=== PATIENT | male | born 1935 | race Caucasian/White ===

== ENCOUNTER 2024-09-06 14:07 | Emergency (ER) | payer OTHER, MEDICARE ==
[~2024-09-06] VITALS: Ht 177.8 cm; Wt 100.0 kg
[~2024-09-06 14:07] MED LIST: CARB1DRO OP; CARV25TA2 PO; CEPH-585 PO; CHOL100046 PO; FLEC100T PO; FLO0.4C PO; FLUT15.845 INH; HYDR12.55 PO; LOSA1TAB41 PO; RIVA20TA PO; SERT-432 PO; SIMV-42 PO; VIT1CAPS46 PO
[2024-09-06 15:59] LABS: BASOPHILS # (AUTO) 0.1 X10'3 (0-0.2); EOSINOPHILS # (AUTO) 0.3 X10'3 (0-0.9); HEMATOCRIT 41.1 % (42.0-52.0); HEMOGLOBIN 13.8 g/dl (14.0-17.9); MEAN CORPUSCULAR HGB CONC 33.6 g/dL (33.0-36.5); MONOCYTES # (AUTO) 0.5 X10'3 (0-0.9); NEUTROPHILS # (AUTO) 3.3 X10'3 (1.8-7.7); RED CELL DISTRIBUTION WIDTH 14.7 % (11.5-14.5); WHITE BLOOD COUNT 5.6 X10'3 (4.5-11.0)
[2024-09-06 16:02] LABS: BASOPHILS % (AUTO) 1.5 % (0-1); EOSINOPHILS % (AUTO) 4.8 % (0-6); LYMPHOCYTES # (AUTO) 1.5 X10'3 (1.1-4.8); LYMPHOCYTES % (AUTO) 25.9 % (21-51); MEAN CORPUSCULAR HEMOGLOBIN 31.4 PG (27.0-31.0); MEAN CORPUSCULAR VOLUME 93.3 FL (78-98); MEAN PLATELET VOLUME 8.6 FL (7.4-10.4); MONOCYTES % (AUTO) 9.8 % (2-12); PLATELET COUNT 233 X10'3 (140-440)
[2024-09-06 16:11] LABS: ALANINE AMINOTRANSFERASE 25 U/L (12-78); ALBUMIN 3.4 G/DL (3.4-5.0); ALKALINE PHOSPHATASE 68 IU/L (46-116); ANION GAP 9 (8-16); ASPARTATE AMINO TRANSFERASE 22 U/L (10-37); BILIRUBIN,TOTAL 0.8 MG/DL (0.1-1.0); BLOOD UREA NITROGEN 31 MG/DL (7-18); BUN/CREATININE RATIO 24.8 (10.0-20.0); CALCIUM 8.9 MG/DL (8.5-10.1); CHLORIDE 104 MMOL/L (99-107); CREATININE 1.25 MG/DL (0.60-1.10); GLUCOSE 84 MG/DL (70-104); LIPASE 45 U/L (16-77); SODIUM 142 MMOL/L (135-145); TOTAL CARBON DIOXIDE 29.3 MMOL/L (24-32); TOTAL PROTEIN 6.9 G/DL (6.4-8.2); eCRCL 43 ML/MIN; eGFR 55 ML/MIN
[2024-09-06 18:46] LABS: CLARITY,URINE TURBID (Clear); COLOR,URINE RED (Yellow); UA COLLECTION TYPE CLN CATCH MIDSTREAM
[2024-09-06 18:56] LABS: SQUAMOUS EPITHELIAL CELL,UR FEW /LPF (FEW)
[2024-09-06 18:57] LABS: BACTERIA,URINE FEW /HPF (Neg); RBC,URINE TNTC /HPF (0-2); WBC,URINE 0-4 /HPF (0-4)
[2024-09-06 19:16] VITALS: PULSE 98
[2024-09-06 21:16] VITALS: BP 136/68; RESP 12; TEMP 97.7; O2SAT 100
== END 2024-09-06 21:18 | disposition home or self-care (01) ==
LOC: ER 14:07
DX: R31.9 Hematuria, unspecified (principal)
CPT/HCPCS: 36415; 80053; 81001; 83690; 85025; 99284